=== PATIENT | male | born 1980 | race Caucasian/White ===

== ENCOUNTER → 2019-10-05 15:13 | Outpatient (BNVA) | payer OTHER, SELFPAY | PROVIDERS: Family Provider Specialist; PCP Specialist; Visit Provider Specialist | DX: G47.411 Narcolepsy with cataplexy (principal) | CPT/HCPCS: 99213 ==

== ENCOUNTER → 2019-12-29 14:43 | Outpatient (BNVA) | payer OTHER, SELFPAY | PROVIDERS: Family Provider Specialist; PCP Specialist; Visit Provider Specialist | DX: G47.411 Narcolepsy with cataplexy (principal) | CPT/HCPCS: 99213 ==

== ENCOUNTER → 2020-04-18 14:52 | Outpatient (BNVA) | payer OTHER, SELFPAY | PROVIDERS: Family Provider Specialist; PCP Specialist; Visit Provider Specialist | DX: G47.419 Narcolepsy without cataplexy (principal); F17.290 Nicotine dependence, other tobacco product, uncomplicated | CPT/HCPCS: 99213 ==

== ENCOUNTER → 2020-07-20 14:51 | Outpatient (BNVA) | payer OTHER, SELFPAY | PROVIDERS: Family Provider Specialist; PCP Specialist; Visit Provider Specialist | DX: G47.419 Narcolepsy without cataplexy (principal) | CPT/HCPCS: 99213 ==

== ENCOUNTER → 2020-11-09 13:49 | Outpatient (BNVA) | payer BC, SELFPAY | PROVIDERS: Family Provider Specialist; PCP Specialist; Visit Provider Specialist | DX: G47.419 Narcolepsy without cataplexy (principal); F17.290 Nicotine dependence, other tobacco product, uncomplicated | CPT/HCPCS: 99214 ==

== ENCOUNTER → 2021-02-15 15:03 | Outpatient (BNVA) | payer BC, SELFPAY | PROVIDERS: Family Provider Specialist; PCP Specialist; Visit Provider Specialist | DX: G47.411 Narcolepsy with cataplexy (principal); Z71.89 Other specified counseling; Z87.891 Personal history of nicotine dependence | CPT/HCPCS: 99213 ==

== ENCOUNTER → 2021-05-17 15:15 | Outpatient (BNVA) | payer BC, SELFPAY | PROVIDERS: Family Provider Specialist; PCP Specialist; Visit Provider Specialist | DX: G47.411 Narcolepsy with cataplexy (principal); Z71.89 Other specified counseling; Z87.891 Personal history of nicotine dependence | CPT/HCPCS: 99214 ==

== ENCOUNTER → 2022-03-11 16:28 | Outpatient (BNVA) | payer OTHER, SELFPAY | PROVIDERS: Family Provider Specialist; Visit Provider Specialist | DX: G47.411 Narcolepsy with cataplexy (principal); R29.90 Unspecified symptoms and signs involving the nervous system; R23.3 Spontaneous ecchymoses; I10 Essential (primary) hypertension | CPT/HCPCS: 36415; 80053; 84443; 85025; 85651; 86160; 86162; 86235; 86255; 86376; 86431 ==